=== PATIENT | female | born 1975 | race Caucasian/White ===

== ENCOUNTER 2017-01-14 09:22 | Inpatient (IN) | payer OTHER ==
[2017-01-14] MEDS ORDERED: NS 1000 ML 1,000 ML IV ONE ×5 (10:40→23:31)
[2017-01-14 10:50] VITALS: BMI 24.1
[2017-01-14] MEDS ORDERED: NS 1000 ML 1,000 ML IV SCH (11:00)
[2017-01-14] MEDS ORDERED: PHARMACY CONSULT - DOSE _____ XX SCH (11:00)
[2017-01-14] MEDS ORDERED: CALCITRIOL PO SCH (11:45)
[2017-01-14] MEDS ORDERED: LEXAPRO ONE (12:06)
[2017-01-14] MEDS: LEXAPRO PO SCH (12:08)
[2017-01-14 12:20] LABS: ALBUMIN 1.3 g/dL (3.4-5.0); CALCIUM 7.3 mg/dL (8.5-10.1); CARBON DIOXIDE 21.2 mmol/L (21-32); COR CA(FOR HYPOALB) 9.5 mg/dL (8.5-10.1); CREATININE 11.53 mg/dL (0.55-1.02)
[2017-01-14 12:27] LABS: BASOPHILS # (AUTO) 0.1 X10^3/uL (0.0-0.1); BASOPHILS % (AUTO) 0.4 % (0.2-1.0); HEMATOCRIT 33.8 % (36.0-47.0); HEMOGLOBIN 10.7 g/dL (12.0-16.0); LYMPHOCYTES # (AUTO) 0.2 X10^3/uL (1.3-2.9); LYMPHOCYTES % (AUTO) 0.7 % (21.0-51.0); MEAN CORPUSCULAR HEMOGLOBIN 29.4 pg (27.0-34.0); MEAN CORPUSCULAR HGB CONC 31.5 g/dL (33.0-35.0); MEAN CORPUSCULAR VOLUME 93.2 fL (80.0-100.0); MONOCYTES # (AUTO) 0.3 x10^3/uL (0.3-0.8); MONOCYTES % (AUTO) 1.1 % (0.0-13.0); NEUTROPHILS # (AUTO) 27.3 x10^3/uL (2.2-4.8); NEUTROPHILS % (AUTO) 97.8 % (42.0-75.0); PLATELET COUNT 96 X10^3/uL (150.0-450.0); RED BLOOD COUNT 3.63 X10^6/uL (3.5-5.4); RED CELL DISTRIBUTION WIDTH 14.9 % (11.6-16.5)
[2017-01-14 12:35] LABS: BAND NEUTROPHILS % 15 % (0-10); PLATELET MORPHOLOGY COMMENT NORMAL (NORMAL); WHITE BLOOD COUNT 27.9 X10^3/uL (3.6-10.0)
[2017-01-14] MEDS ORDERED: ROCALTROL PO SCH (13:00)
[2017-01-14] MEDS: ZOSYN VIAL 2.25 GM 2.25 GM in NS 100 ML IV + SPIKE MINIBAG* 100 ML IV SCH ×2 (14:09→15:28)
[2017-01-14] MEDS: TACROLIMUS 1.5 MG PO SCH ×3 (14:09→23:10)
[2017-01-14] MEDS: SEVELAMER CARBONATE PO SCH ×4 (14:10→21:07)
[2017-01-14] MEDS: PANCRELIPASE PO SCH ×2 (16:54→20:04)
[2017-01-14] MEDS ORDERED: NS 1000 ML 1,000 ML ONE (19:46)
[2017-01-14] MEDS ORDERED: NS 1000 ML 500 ML IV ONE ×2 (19:49→21:03)
[2017-01-14] MEDS: FLONASE NASAL SPRAY ENOSTRIL SCH ×2 (19:58→21:16)
[2017-01-14] MEDS: DESYREL PO SCH (20:00)
[2017-01-14] MEDS: NexIUM PO SCH (20:00)
[2017-01-14] MEDS: MYCOPHENOLATE MOFETIL PO SCH (20:03)
[2017-01-14] MEDS: SNACK - Diabetic Appropriate PO SCH (20:24)
[2017-01-14] MEDS ORDERED: TRAZODONE HCL PO SCH (21:00)
[2017-01-14] MEDS: LANTUS SC SCH (21:12)
[2017-01-15] MEDS: NS 1000 ML 1,000 ML IV SCH ×6 (00:43→21:38)
[2017-01-15] MEDS ORDERED: NS 1000 ML 1,000 ML IV ONE (00:50)
[2017-01-15 06:37] LABS: BASOPHILS # (AUTO) 0.1 X10^3/uL (0.0-0.1); BASOPHILS % (AUTO) 0.3 % (0.2-1.0); EOSINOPHILS % (AUTO) 0.2 % (0.9-2.9); HEMATOCRIT 27.2 % (36.0-47.0); HEMOGLOBIN 8.7 g/dL (12.0-16.0); LYMPHOCYTES # (AUTO) 0.6 X10^3/uL (1.3-2.9); LYMPHOCYTES % (AUTO) 2.3 % (21.0-51.0); MEAN CORPUSCULAR HGB CONC 31.9 g/dL (33.0-35.0); MEAN CORPUSCULAR VOLUME 94.2 fL (80.0-100.0); MEAN PLATELET VOLUME 10.1 fL (7.4-11.0); MONOCYTES # (AUTO) 1.1 x10^3/uL (0.3-0.8); MONOCYTES % (AUTO) 4.3 % (0.0-13.0); NEUTROPHILS # (AUTO) 23.2 x10^3/uL (2.2-4.8); NEUTROPHILS % (AUTO) 92.9 % (42.0-75.0); PLATELET COUNT 82 X10^3/uL (150.0-450.0); RED BLOOD COUNT 2.88 X10^6/uL (3.5-5.4); RED CELL DISTRIBUTION WIDTH 15.4 % (11.6-16.5)
[2017-01-15 06:44] LABS: ALANINE AMINOTRANSFERASE 16 Units/L (12-78); ALKALINE PHOSPHATASE 337 Units/L (46-116); ASPARTATE AMINO TRANSFERASE 12 Units/L (15-37); BLOOD UREA NITROGEN 45 mg/dL (7-18); CALCIUM 6.9 mg/dL (8.5-10.1); CARBON DIOXIDE 16.4 mmol/L (21-32); CHLORIDE 108 mmol/L (98-107); COR CA(FOR HYPOALB) 9.3 mg/dL (8.5-10.1); GLUCOSE 105 mg/dL (65-99); SODIUM 138 mmol/L (136-145); TOTAL PROTEIN 4.5 g/dL (6.4-8.2); eGFR BLACK RACES 6 (>60); eGFR NON BLACK RACES 5 (>60)
--- NOTE | 2017-01-15 06:57 | RAD ---
HISTORY: Fever Study: Chest two views Comparison: August 12, 2016 Findings: The heart is enlarged. No congestive heart failure is noted. Interstitial lung changes are present b ilaterally. Pleural-parenchymal scarring is present in the right lung base and along the right later al chest wall. There does appear to be some superimposed acute right lower lobe infiltrate present. A right pleural effusion is likely present. The remainder of the lung treviño are free of acute alveo lar infiltrates. There is some peribronchial thickening consistent with bronchitis. IMPRESSION: Cardiomegaly without congestive heart failure Right lower lobe lung infiltrate suggestive of pneumonia. Peribronchial thickening suggestive of bronchitis Pleural-parenchymal scarring right lung base Right pleural effusion Reported By:
[2017-01-15 07:01] LABS: BAND NEUTROPHILS % 7 % (0-10); PLATELET MORPHOLOGY COMMENT NORMAL (NORMAL)
[2017-01-15] MEDS ORDERED: LEXAPRO ONE (07:44)
[2017-01-15] MEDS: PREDNISONE TAB 5 MG PO SCH ×2 (07:53→08:07)
[2017-01-15] MEDS: LEXAPRO PO SCH ×2 (07:54→08:08)
[2017-01-15] MEDS: NexIUM PO SCH ×3 (07:54→20:27)
[2017-01-15] MEDS: SEVELAMER CARBONATE PO SCH ×3 (07:55→21:38)
[2017-01-15] MEDS: MYCOPHENOLATE MOFETIL PO SCH ×3 (07:56→20:27)
[2017-01-15] MEDS: PANCRELIPASE PO SCH ×3 (07:56→20:27)
[2017-01-15] MEDS: ZOSYN VIAL 2.25 GM 2.25 GM in NS 100 ML IV + SPIKE MINIBAG* 100 ML IV SCH ×3 (07:57→20:36)
[2017-01-15] MEDS: FLONASE NASAL SPRAY ENOSTRIL SCH ×3 (07:58→20:36)
[2017-01-15] MEDS: TACROLIMUS 1.5 MG PO SCH ×3 (07:58→23:45)
[2017-01-15] MEDS ORDERED: SOLU-Cortef INJ IVP ONE (08:39)
[2017-01-15] MEDS ORDERED: PREDNISONE TAB 5 MG PO SCH ×2 (09:00)
--- NOTE | 2017-01-15 09:12 | CT ---
STUDY: CT PARANASAL SINUSES WITHOUT CONTRAST HISTORY: Fever. Comparison: None. Technique: Multiple axial images of the paranasal sinuses were obtained without the administration o f IV contrast. Coronal and sagittal reformats were performed and reviewed. Automated exposure contr ol (AEC) was utilized to adjust the MA and/or kV. Findings: Axial images: There is complete opacification of the right maxillary sinus. There is complete opacif ication of an atelectatic left maxillary sinus. There is opacification of atelectatic sphenoid chamb ers bilaterally, and extensive opacification of multiple ethmoid air cells , with associated small f luid levels. The frontal recesses are opacified. There is under pneumatization of the frontal sinuse s. There is extensive osteoneogenesis around the paranasal sinuses. The retro antral fat is clear. T he nasal cavity is within normal limits. There is no significant nasal septal deviation. The nasal b one is intact. Reformatted images: The ethmoid roofs are symmetric. There is several possible defects in the lamina papyracea bilaterally. There are postsurgical changes in the maxillary antra. There is no evidence of orbital blowout. The ostiomeatal units are predominantly clear. No signficant odontogenic abnorma lity is identified. Mastoid air cells and middle ear cavities are predominately clear. IMPRESSION: 1. Complete and partial opacification of the paranasal sinuses as described, with associated osteon eogenesis. Imaging characteristics are most concerning for acute on chronic sinusitis. Clinical leti elation is recommended. 2. Normal appearing mastoid air cells and middle ear cavities bilaterally. Reported By:
[2017-01-15] MEDS ORDERED: PROCRIT or EPOGEN SC ONE (09:34)
[2017-01-15] MEDS ORDERED: NS 1000 ML 1,000 ML IV SCH (12:00)
[2017-01-15] MEDS ORDERED: PROCRIT or EPOGEN ONE (12:09)
[2017-01-15] MEDS: SOLU-Cortef INJ IVP SCH ×2 (13:42→21:37)
[2017-01-15] MEDS: DESYREL PO SCH (20:27)
[2017-01-15] MEDS: HumuLIN R SUBCUT PRN (20:34)
[2017-01-15] MEDS: LANTUS SC SCH (20:34)
[2017-01-15] MEDS: SNACK - Diabetic Appropriate PO SCH (20:36)
[2017-01-16] MEDS: HumuLIN R SUBCUT PRN ×3 (05:34→21:35)
[2017-01-16] MEDS: SOLU-Cortef INJ IVP SCH (05:34)
[2017-01-16] MEDS: SEVELAMER CARBONATE PO SCH ×4 (05:36→21:32)
[2017-01-16] MEDS: NS 1000 ML 1,000 ML IV SCH (05:42)
[2017-01-16 06:15] LABS: BASOPHILS % (AUTO) 0.1 % (0.2-1.0); EOSINOPHILS % (AUTO) 0.1 % (0.9-2.9); HEMATOCRIT 30.4 % (36.0-47.0); HEMOGLOBIN 9.9 g/dL (12.0-16.0); LYMPHOCYTES # (AUTO) 0.4 X10^3/uL (1.3-2.9); LYMPHOCYTES % (AUTO) 2.3 % (21.0-51.0); MEAN CORPUSCULAR HEMOGLOBIN 30.4 pg (27.0-34.0); MEAN CORPUSCULAR HGB CONC 32.5 g/dL (33.0-35.0); MEAN CORPUSCULAR VOLUME 93.4 fL (80.0-100.0); MEAN PLATELET VOLUME 9.6 fL (7.4-11.0); MONOCYTES # (AUTO) 0.3 x10^3/uL (0.3-0.8); MONOCYTES % (AUTO) 1.7 % (0.0-13.0); NEUTROPHILS # (AUTO) 18.1 x10^3/uL (2.2-4.8); NEUTROPHILS % (AUTO) 95.8 % (42.0-75.0); PLATELET COUNT 90 X10^3/uL (150.0-450.0); RED BLOOD COUNT 3.25 X10^6/uL (3.5-5.4); RED CELL DISTRIBUTION WIDTH 15.5 % (11.6-16.5); WHITE BLOOD COUNT 18.9 X10^3/uL (3.6-10.0)
[2017-01-16 06:31] LABS: ALBUMIN 1.1 g/dL (3.4-5.0); CALCIUM 7.1 mg/dL (8.5-10.1); CARBON DIOXIDE 16.4 mmol/L (21-32); COR CA(FOR HYPOALB) 9.4 mg/dL (8.5-10.1); CREATININE 9.41 mg/dL (0.55-1.02); TOTAL PROTEIN 4.9 g/dL (6.4-8.2)
[2017-01-16 06:45] LABS: BAND NEUTROPHILS % 3 % (0-10)
[2017-01-16 06:46] LABS: PLATELET MORPHOLOGY COMMENT NORMAL (NORMAL)
[2017-01-16] MEDS ORDERED: LEXAPRO ONE (07:31)
[2017-01-16] MEDS ORDERED: MAGNESIUM SULFATE 1 GM/100 mL PREMIX 1 GM/100 ML BAG IV ONE (07:46)
[2017-01-16] MEDS: FLONASE NASAL SPRAY ENOSTRIL SCH ×2 (08:06→21:36)
[2017-01-16] MEDS ORDERED: LANTUS SC SCH (08:06)
[2017-01-16] MEDS: LEXAPRO PO SCH (08:06)
[2017-01-16] MEDS: MYCOPHENOLATE MOFETIL PO SCH ×2 (08:06→21:30)
[2017-01-16] MEDS: NexIUM PO SCH ×2 (08:07→21:28)
[2017-01-16] MEDS: ZOSYN VIAL 2.25 GM 2.25 GM in NS 100 ML IV + SPIKE MINIBAG* 100 ML IV SCH ×2 (08:08→21:32)
[2017-01-16] MEDS: PANCRELIPASE PO SCH ×2 (08:08→21:31)
[2017-01-16] MEDS: TACROLIMUS 1.5 MG PO SCH ×3 (08:08→23:53)
[2017-01-16] MEDS: PREDNISONE TAB 10 MG PO SCH (08:12)
[2017-01-16] MEDS: DESYREL PO SCH (21:28)
[2017-01-16] MEDS: SNACK - Diabetic Appropriate PO SCH (21:33)
[2017-01-17] MEDS: NS 1000 ML 1,000 ML IV SCH ×2 (01:51→09:20)
[2017-01-17 05:38] LABS: ALBUMIN 1.3 g/dL (3.4-5.0); BASOPHILS # (AUTO) 0.1 X10^3/uL (0.0-0.1); BASOPHILS % (AUTO) 0.4 % (0.2-1.0); CALCIUM 7.4 mg/dL (8.5-10.1); CARBON DIOXIDE 18.5 mmol/L (21-32); COR CA(FOR HYPOALB) 9.6 mg/dL (8.5-10.1); CREATININE 9.22 mg/dL (0.55-1.02); EOSINOPHILS # (AUTO) 0.1 x10^3/uL (0.0-0.2); EOSINOPHILS % (AUTO) 0.4 % (0.9-2.9); HEMATOCRIT 33.7 % (36.0-47.0); HEMOGLOBIN 10.5 g/dL (12.0-16.0); LYMPHOCYTES # (AUTO) 0.9 X10^3/uL (1.3-2.9); LYMPHOCYTES % (AUTO) 4.8 % (21.0-51.0); MAGNESIUM 1.8 mg/dL (1.7-2.9); MEAN CORPUSCULAR HEMOGLOBIN 29.5 pg (27.0-34.0); MEAN CORPUSCULAR HGB CONC 31.3 g/dL (33.0-35.0); MEAN CORPUSCULAR VOLUME 94.3 fL (80.0-100.0); MEAN PLATELET VOLUME 8.9 fL (7.4-11.0); MONOCYTES # (AUTO) 0.4 x10^3/uL (0.3-0.8); NEUTROPHILS % (AUTO) 92.4 % (42.0-75.0); PLATELET COUNT 103 X10^3/uL (150.0-450.0); RED BLOOD COUNT 3.57 X10^6/uL (3.5-5.4); RED CELL DISTRIBUTION WIDTH 15.3 % (11.6-16.5); TOTAL PROTEIN 5.1 g/dL (6.4-8.2); WHITE BLOOD COUNT 18.4 X10^3/uL (3.6-10.0)
[2017-01-17] MEDS: HumuLIN R SUBCUT PRN (05:49)
--- NOTE | 2017-01-17 06:54 | RAD ---
HISTORY: Follow up lung infiltrate Study: chest two-view Comparison: January 15, 2017 Findings: The heart is enlarged. No congestive heart failure is noted. There has been improvement in the right lower lobe infiltrate being followed. Pleural-parenchymal scarring is present also in the right krysta g base, stable. The remainder of the lung treviño are free of acute alveolar infiltrates. There are s ome interstitial lung changes bilaterally. Bilateral small pleural effusions are present. IMPRESSION: Improving right basilar lung infiltrate Bilateral small effusions Cardiomegaly without congestive heart failure Interstitial lung changes Reported By:
[2017-01-17 07:21] LABS: PLATELET MORPHOLOGY COMMENT NORMAL (NORMAL)
[2017-01-17] MEDS ORDERED: LEXAPRO ONE (08:55)
[2017-01-17] MEDS: FLONASE NASAL SPRAY ENOSTRIL SCH (09:00)
[2017-01-17] MEDS: SEVELAMER CARBONATE PO SCH (09:00)
[2017-01-17] MEDS: PREDNISONE TAB 10 MG PO SCH (09:15)
[2017-01-17] MEDS: LEXAPRO PO SCH (09:15)
[2017-01-17] MEDS: ZOSYN VIAL 2.25 GM 2.25 GM in NS 100 ML IV + SPIKE MINIBAG* 100 ML IV SCH (09:16)
[2017-01-17] MEDS: NexIUM PO SCH (09:16)
[2017-01-17] MEDS: MYCOPHENOLATE MOFETIL PO SCH (09:18)
[2017-01-17] MEDS: PANCRELIPASE PO SCH (09:19)
[2017-01-17 16:30] VITALS: BP 104/65
== END 2017-01-17 13:50 | disposition home or self-care (01) | DRG 312 ==
LOC: OBSVTOIN 09:22 → MED/SURG 09:22 → ICU 10:10
PROVIDERS: ADMIT Obstetrics & Gynecology Obstetrics; ATTEND Obstetrics & Gynecology Obstetrics
DX: I95.1 Orthostatic hypotension (principal); R50.9 Fever, unspecified; R11.2 Nausea with vomiting, unspecified; R30.0 Dysuria; J16.8 Pneumonia due to other specified infectious organisms; E27.49 Other adrenocortical insufficiency; E84.9 Cystic fibrosis, unspecified; E86.0 Dehydration; E11.65 Type 2 diabetes mellitus with hyperglycemia; E83.42 Hypomagnesemia; N18.9 Chronic kidney disease, unspecified
CPT/HCPCS: 36415; 70486; 71020; 80053; 83735; 84100; 84630; 85025; 87040; A4222; J0885; J1720; J1815; J2543; J7506

== ENCOUNTER 2017-01-18 12:20 | Emergency (ER) | payer OTHER ==
[2017-01-18] MEDS ORDERED: SOLU-Medrol 125 MG VIAL ONE (12:22)
[2017-01-18] MEDS ORDERED: SOLU-Medrol 125 MG VIAL IVP ONE ×2 (12:23→12:27)
[2017-01-18] MEDS ORDERED: DOPAMINE IV PREMIX 400 MG 400 MG/250 ML BAG IV ONE ×2 (12:26→12:27)
[2017-01-18] MEDS ORDERED: NS 500 ML IV 500 ML IV ONE (12:26)
[2017-01-18] MEDS ORDERED: ZOFRAN INJ 4 MG VIAL IVP ONE (12:33)
[2017-01-18] MEDS ORDERED: ZOFRAN INJ 4 MG VIAL ONE (12:33)
--- NOTE | 2017-01-18 12:54 | DR.GENAD ---
HPI - Complaint/Symptoms Chief Complaint Doctors Comments: Patient with low blood pressure today. Spouse state patient dismissed from the hospital yesterday and did good at home but her weight was 152 and her dry weight is 136 so she did her dialysis and the pulled off 2600cc and her blood pressure has been low since. states she was in the hospital and they gave her a lot of fluid and states she is fluid overloaded and she is a double lung transplant with home peritoneal dialysis. Patient complains of hurting all over with episode SOB and wheezing. Patient also complains of being nauseated. Dr. Mckeon called and states her blood pressure usually runs low around 70/40 to 90/40. Patient with blood pressure 66 /33. - Nurses notes reviewed Nurses Notes Review: Yes - Source History Provided: Patient, Family Member - Mode of Arrival Mode of Arrival: EMS - Timing Came on: Gradually - Duration Duration: Constant How lon Duration: Hours - Location Location: hurting all over - Severity Severity: Moderate - Modifying Factors Worsens:: nothing Improves:: nothing PMH - PMH Past Medical History: Diabetes, Dialysis, Renal Disease Past Surgical History: Yes Surgical History: Cholecystectomy, Tonsillectomy - Family History Family Medical History: Diabetes Mellitus, Cancer, [place], Hypertension - Social History Do you use any recreational Drugs:: No ROS - Review of Systems Constitutional: No Symptoms Reported, Weakness Eyes: No Symptoms Reported ENTM: No Symptoms Reported Respiratoy: No Symptoms Reported, Short of Breath, Wheezing Cardiovascular: Edema. negative: No Symptoms Reported, See HPI, Chest Pain, Palpitations, Syncope, Cyanosis, Skin Mottling, Other Gastrointestinal/Abdominal: No Symptoms Reported, Nausea, Vomiting. negative: See HPI, Abdominal Pain, Constipation, Diarrhea, Food Intolerance, Other Genitourinary: No Symptoms Reported Neurological: No Symptoms Reported, Weakness, Problems Walking Musculoskeletal: No Symptoms Reported Integumentary: No Symptoms Reported Hematologic/Lymphatic: No Symptoms Reported Endocrine: No Symptoms Reported Psychiatric: No Symptoms Reported PE - Vital Signs Vitals: Temperature 100.3 F Pulse Rate [Right Brachial] 126 Pulse Rate 20 Respiratory Rate 18 Blood Pressure [Right Arm] 123/78 Blood Pressure [Left Arm] 104/65 Blood Pressure 67/33 O2 Sat by Pulse Oximetry 100 - General Limitations: No Limitations General Appearance: Alert, In Distress (moderate to severe) - Head Head Exam: Normal Inspection, Atraumatic, Normocephalic - Eyes Eye exam: Normal Appearance, PERRL, EOMI. negative: Scleral Icterus, Conjunctival Injection, Nystagmus, Miosis, Mydrasis, Periorbital Swelling, Periorbital Tenderness, Other - ENT ENT Exam: Normal Exam, Normal Oropharynx, Normal External Ear Exam, Mucous Membranes Moist, TM's Normal Bilaterally External Ear Exam: Normal External Inspection TM/Canal Exam: Bilateral Normal Nose Exam: Normal Nose Exam Mouth Exam: Normal Inspection Throat Exam: Normal Inspection. negative: Tonsillar Erythema, Tonsillomegaly, Tonsillar Exudate, R Peritonsillar Mass, L Peritonsillar Mass, Muffled Voice, Other - Neck Neck Exam: Normal Inspection, Full ROM, Trachea Midline - Chest Chest Inspection: Normal Inspection, Symmetric Chest Wall Rise - Respiratory Respiratory Exam: Normal Lung Sounds Bilat, Prolonged Expiratory Phase Respiratory Exam: Bilateral Clear to Auscultation - Cardiovascular Cardiovascular Exam: Regular Rate, Normal Rhythm, Normal Heart Sounds. negative : Bradycardia, Tachycardia, Irregular Rhythm, Systolic Murmur, Diastolic Murmur , Rubs, Gallop, Clicks, JVD, +S1, +S2, +S3, +S4, Other - Abdominal Exam Abdominal Exam: Normal Inspection, Normal Bowel Sounds, Soft Abdominal Tenderness: Epigastrium, Mild - Extremities Extremities Exam: Normal Inspection, Full ROM, Normal Capillary Refill. negative: Tenderness - Back Back Exam: Normal Inspection, Full ROM - Neurologic Neurological Exam: Alert, Oriented X3, CN II-XII Intact, Reflexes Normal. negative: Normal Gait (gait not tested) - Psychiatric Psychiatric Exam: Normal Affect, Normal Mood, Depressed - Skin Skin Exam: Warm, Dry, Intact, Normal Color ROR - Labs Reviewed Result Diagrams: 01/18/17 12:40 01/18/17 12:40 Laboratory: WBC 20.9 X10^3/uL (3.6-10.0) H* 01/18/17 12:40 RBC 3.85 X10^6/uL (3.5-5.4) 01/18/17 12:40 Hgb 11.3 g/dL (12.0-16.0) L 01/18/17 12:40 Hct 35.5 % (36.0-47.0) L 01/18/17 12:40 MCV 92.2 fL (80.0-100.0) 01/18/17 12:40 MCH 29.4 pg (27.0-34.0) 01/18/17 12:40 MCHC 31.9 g/dL (33.0-35.0) L 01/18/17 12:40 RDW 14.9 % (11.6-16.5) 01/18/17 12:40 Plt Count 103 X10^3/uL (150.0-450.0) L 01/18/17 12:40 Plt Count Comment Decreased (ADEQUATE) A 01/18/17 12:40 MPV 8.5 fL (7.4-11.0) 01/18/17 12:40 Neut % 98.1 % (42.0-75.0) H 01/18/17 12:40 Lymph % 0.9 % (21.0-51.0) L 01/18/17 12:40 [place] % 0.1 % (0.0-13.0) 01/18/17 12:40 Eos % 0.6 % (0.9-2.9) L 01/18/17 12:40 Baso % 0.3 % (0.2-1.0) 01/18/17 12:40 Neut # 20.5 x10^3/uL (2.2-4.8) H 01/18/17 12:40 Lymph # 0.2 X10^3/uL (1.3-2.9) L 01/18/17 12:40 [place] # 0 x10^3/uL (0.3-0.8) L 01/18/17 12:40 Eos # 0.1 x10^3/uL (0.0-0.2) 01/18/17 12:40 Baso # 0.1 X10^3/uL (0.0-0.1) 01/18/17 12:40 Absolute Nucleated RBC 0.5 /100WBC 01/18/17 12:40 Total Counted 100 01/18/17 12:40 Neutrophils % (Manual) 97 % (39-76) H 01/18/17 12:40 Lymphocytes % (Manual) 2 % (13-43) L 01/18/17 12:40 Monocytes % (Manual) 1 % (4-9) L 01/18/17 12:40 Plt Morphology Comment Normal (NORMAL) 01/18/17 12:40 RBC Morphology Normal (NORMAL) 01/18/17 12:40 INR Target Range - 01/18/17 12:40 INR 1.16 (0.8-1.3) 01/18/17 12:40 PTT 24.8 SECONDS (22.9-36.5) 01/18/17 12:40 PTT Comment - 01/18/17 12:40 Sodium 138 mmol/L (136-145) 01/18/17 12:40 Corrected Sodium 139 mmol/L (136-145) 01/18/17 12:40 Potassium 3.0 mmol/L (3.5-5.1) L* 01/18/17 12:40 Chloride 103 mmol/L (98-107) 01/18/17 12:40 Carbon Dioxide 19.4 mmol/L (21-32) L 01/18/17 12:40 BUN 41 mg/dL (7-18) H 01/18/17 12:40 Creatinine 8.95 mg/dL (0.55-1.02) H 01/18/17 12:40 Est GFR (MDRD) Af Amer 6 (>60) L 01/18/17 12:40 Est GFR (MDRD) Non-Af 5 (>60) L 01/18/17 12:40 Glucose 122 mg/dL (65-99) H 01/18/17 12:40 Lactic Acid 4.3 mmol/L (0.4-2.0) H 01/18/17 13:10 Calcium 7.3 mg/dL (8.5-10.1) L 01/18/17 12:40 Corrected Calcium 9.4 mg/dL (8.5-10.1) 01/18/17 12:40 Magnesium 1.3 mg/dL (1.7-2.9) L 01/18/17 12:40 Total Bilirubin 0.70 mg/dL (0.2-1.0) 01/18/17 12:40 AST 105 Units/L (15-37) H 01/18/17 12:40 ALT 60 Units/L (12-78) 01/18/17 12:40 Alkaline Phosphatase 630 Units/L (46-116) H 01/18/17 12:40 Creatine Kinase 12 Units/L (26-192) L 01/18/17 12:40 CK-MB (CK-2) < 1.0 ng/mL (0-4.0) 01/18/17 12:40 CK/CKMB % Calc 8.3 % (<4) 01/18/17 12:40 Troponin I < 0.02 ng/mL (0-1.5) 01/18/17 12:40 Total Protein 4.9 g/dL (6.4-8.2) L 01/18/17 12:40 Albumin 1.4 g/dL (3.4-5.0) L 01/18/17 12:40 Globulin 3.5 g/dL (2.5-4.5) 01/18/17 12:40 Albumin/Globulin Ratio 0.4 Ratio (1.1-2.1) L 01/18/17 12:40 - EKG Rate: 130 [place]: Normal Rhythm: ST ST: Ant, Nonsp - Diagnosis Discharge Problem: Symptomatic hypotension, Renal failure, Lung transplant status, bilateral, Hypokalemia, bilateral pulmonary basilar lesions, History of peritoneal dialysis - [facility] Condition: Stable - Follow ups/Referrals Follow ups/Referrals: PALOMA MCKEON [Primary Care Provider] - 3 days - Instructions
[2017-01-18 12:57] LABS: EOSINOPHILS # (AUTO) 0.1 x10^3/uL (0.0-0.2); HEMATOCRIT 35.5 % (36.0-47.0); HEMOGLOBIN 11.3 g/dL (12.0-16.0); LYMPHOCYTES # (AUTO) 0.2 X10^3/uL (1.3-2.9); MONOCYTES # (AUTO) 0 x10^3/uL (0.3-0.8)
[2017-01-18 13:06] LABS: BASOPHILS # (AUTO) 0.1 X10^3/uL (0.0-0.1); BASOPHILS % (AUTO) 0.3 % (0.2-1.0); EOSINOPHILS % (AUTO) 0.6 % (0.9-2.9); LYMPHOCYTES % (AUTO) 0.9 % (21.0-51.0); MEAN CORPUSCULAR HEMOGLOBIN 29.4 pg (27.0-34.0); MEAN CORPUSCULAR HGB CONC 31.9 g/dL (33.0-35.0); MEAN CORPUSCULAR VOLUME 92.2 fL (80.0-100.0); MEAN PLATELET VOLUME 8.5 fL (7.4-11.0); MONOCYTES % (AUTO) 0.1 % (0.0-13.0); NEUTROPHILS # (AUTO) 20.5 x10^3/uL (2.2-4.8); NEUTROPHILS % (AUTO) 98.1 % (42.0-75.0); PLATELET COUNT 103 X10^3/uL (150.0-450.0); RED BLOOD COUNT 3.85 X10^6/uL (3.5-5.4); RED CELL DISTRIBUTION WIDTH 14.9 % (11.6-16.5)
[2017-01-18 13:14] LABS: ALANINE AMINOTRANSFERASE 60 Units/L (12-78); ALBUMIN 1.4 g/dL (3.4-5.0); ALKALINE PHOSPHATASE 630 Units/L (46-116); ASPARTATE AMINO TRANSFERASE 105 Units/L (15-37); BLOOD UREA NITROGEN 41 mg/dL (7-18); CALCIUM 7.3 mg/dL (8.5-10.1); CARBON DIOXIDE 19.4 mmol/L (21-32); CHLORIDE 103 mmol/L (98-107); COR CA(FOR HYPOALB) 9.4 mg/dL (8.5-10.1); COR NA(FOR HYPERGLY) 139 mmol/L (136-145); CREATINE KINASE 12 Units/L (26-192); CREATINE KINASE MB < 1.0 ng/mL (0-4.0); CREATININE 8.95 mg/dL (0.55-1.02); GLUCOSE 122 mg/dL (65-99); MAGNESIUM 1.3 mg/dL (1.7-2.9); SODIUM 138 mmol/L (136-145); TOTAL PROTEIN 4.9 g/dL (6.4-8.2); TROPONIN I < 0.02 ng/mL (0-1.5); eGFR BLACK RACES 6 (>60); eGFR NON BLACK RACES 5 (>60)
[2017-01-18 13:16] LABS: WHITE BLOOD COUNT 20.9 X10^3/uL (3.6-10.0)
[2017-01-18 13:17] LABS: PLATELET MORPHOLOGY COMMENT NORMAL (NORMAL)
[2017-01-18 13:21] VITALS: BMI 24.3
[2017-01-18 13:21] LABS: CKMB % 8.3 % (<4)
[2017-01-18] MEDS ORDERED: REGLAN INJ 10 MG VIAL ONE (13:51)
--- NOTE | 2017-01-18 13:57 | RAD ---
HISTORY: Chest pain, bilateral lung transplant Study: Single-view chest Comparison: January 17, 2017 Findings: The trachea is midline. The heart size is normal. Surgical changes are present from lung transplanta tion. Improving aeration is seen involving the lung bases. A small pleural effusion is present on th e left. The right-sided pleural effusion may have resolved. A few small foci of atelectasis or infil trate are still present in the lung bases bilaterally. Osseous structures are intact. IMPRESSION: Interval improvement as described above. Reported By:
[2017-01-18] MEDS ORDERED: K-RIDER 10 MEQ/NS 100 ML 10 MEQ/100 ML BAG IV ONE (14:03)
[2017-01-18] MEDS ORDERED: REGLAN INJ 10 MG VIAL IVP STA (14:03)
[2017-01-18] MEDS ORDERED: VANCOMYCIN HCL 1 GM VIAL IV STA (14:21)
[2017-01-18] MEDS ORDERED: TYLENOL 500 MG TAB EXTRA STRENGTH PO ONE ×2 (14:51→21:34)
[2017-01-18] MEDS ORDERED: TYLENOL 500 MG TAB EXTRA STRENGTH ONE ×2 (14:52→21:32)
[2017-01-18] MEDS ORDERED: MERREM VIAL 500 MG in NS 100 ML IV + SPIKE MINIBAG* 100 ML IV SCH (15:00)
[2017-01-18] MEDS ORDERED: VANCOMYCIN HCL 1 GM VIAL ONE (15:03)
[2017-01-18] MEDS ORDERED: NS 250 ML IV 250 ML IV ONE (15:03)
[2017-01-18] MEDS ORDERED: NS 100 ML IV 100 ML IV ONE (21:19)
[2017-01-18] MEDS ORDERED: MERREM VIAL ONE (21:19)
[2017-01-18 22:16] VITALS: BP 98/65
== END 2017-01-18 23:18 ==
LOC: ER 12:20
DX: I95.89 Other hypotension (principal); N19 Unspecified kidney failure; Z94.2 Lung transplant status; E87.6 Hypokalemia; J98.4 Other disorders of lung; Z99.2 Dependence on renal dialysis
CPT/HCPCS: 36415; 71010; 80053; 82550; 82553; 83605; 83735; 84484; 85025; 85610; 85730; 93005; 93010; 96365; 96367; 96374; 96375; 99283; 99285; A4222; J1265; J2185; J2405; J2765; J2930; J3370

== ENCOUNTER 2017-07-02 09:42 | Inpatient (IN) | payer OTHER ==
[2017-07-02] MEDS: NS 1000 ML 1,000 ML IV SCH (10:00)
[2017-07-02 10:13] VITALS: BMI 25.6
[2017-07-02] MEDS ORDERED: NS 1000 ML 300 ML IV ONE (10:16)
[2017-07-02] MEDS ORDERED: ZOFRAN INJ 4 MG VIAL IVP PRN (10:20)
[2017-07-02 10:27] LABS: BASOPHILS % (AUTO) 0.2 % (0.2-1.0); EOSINOPHILS # (AUTO) 0.1 x10^3/uL (0.0-0.2); EOSINOPHILS % (AUTO) 0.8 % (0.9-2.9); HEMATOCRIT 30.1 % (36.0-47.0); HEMOGLOBIN 9.9 g/dL (12.0-16.0); LYMPHOCYTES # (AUTO) 0.6 X10^3/uL (1.3-2.9); LYMPHOCYTES % (AUTO) 3.9 % (21.0-51.0); MEAN CORPUSCULAR HEMOGLOBIN 29.6 pg (27.0-34.0); MEAN CORPUSCULAR VOLUME 89.6 fL (80.0-100.0); MEAN PLATELET VOLUME 8.9 fL (7.4-11.0); MONOCYTES # (AUTO) 1.6 x10^3/uL (0.3-0.8); MONOCYTES % (AUTO) 9.6 % (0.0-13.0); NEUTROPHILS # (AUTO) 13.9 x10^3/uL (2.2-4.8); NEUTROPHILS % (AUTO) 85.5 % (42.0-75.0); PLATELET COUNT 103 X10^3/uL (150.0-450.0); RED BLOOD COUNT 3.36 X10^6/uL (3.5-5.4); RED CELL DISTRIBUTION WIDTH 17.2 % (11.6-16.5); WHITE BLOOD COUNT 16.2 X10^3/uL (3.6-10.0)
[2017-07-02] MEDS: DILAUDID INJ IVP PRN ×2 (10:27→13:09)
--- NOTE | 2017-07-02 10:29 | RAD ---
Examination: Portable AP chest History: SOB, lung transplant, dialysis Comparison reference: 01/18/2017 Findings: There is mild cardiomegaly. The central pulmonary vessels are congested. There is abnormal density behind the heart which may reflect airspace disease in the lower lung. The upper lobes are re latively clear. There is a right IJ catheter, possibly for dialysis purposes, extending to the right atrium. There is no evidence for pneumothorax. Impression: Cardiomegaly and pulmonary vascular congestion. Suspect infiltrate/atelectasis left lower lobe. Right IJ dialysis catheter position as described. Reported By:
[2017-07-02 10:35] LABS: B-TYPE NATRIURETIC PEPTIDE 124 pg/mL (0-79)
[2017-07-02 10:41] LABS: BLOOD UREA NITROGEN 40 mg/dL (7-18); CARBON DIOXIDE 28.5 mmol/L (21-32); CHLORIDE 94 mmol/L (98-107); CREATININE 10.46 mg/dL (0.55-1.02); SODIUM 133 mmol/L (136-145); TROPONIN I < 0.02 ng/mL (0-1.5); eGFR BLACK RACES 5 (>60); eGFR NON BLACK RACES 4 (>60)
[2017-07-02 10:45] LABS: ALANINE AMINOTRANSFERASE 23 Units/L (12-78); ALBUMIN 1.4 g/dL (3.4-5.0); ALKALINE PHOSPHATASE 592 Units/L (46-116); ASPARTATE AMINO TRANSFERASE 21 Units/L (15-37); CKMB % 3.2 % (<4); COR CA(FOR HYPOALB) 9.1 mg/dL (8.5-10.1); CREATINE KINASE 31 Units/L (26-192); CREATINE KINASE MB < 1.0 ng/mL (0-4.0); TOTAL PROTEIN 6.2 g/dL (6.4-8.2)
[2017-07-02] MEDS ORDERED: SODIUM THIOSULFATE IVP SCH (11:30)
[2017-07-02] MEDS ORDERED: SOLU-Medrol 40 MG VIAL IVP ONE (11:34)
[2017-07-02] MEDS ORDERED: SOLU-Medrol 40 MG VIAL ONE (11:41)
--- NOTE | 2017-07-02 12:53 | DR.SOBA ---
HPI - Time Seen Time seen: 10:50 - Primary Care Physician Primary Care Physician: [email or web address] - HPI Comment HPI Comment: PATIENT IS HAVING ABDOMINAL PAIN, FEVER SOB AND DIZZNESS CURRENTLY. NO VOMITING. NO DIARRHEA. ON PERITONEAL DIALYSIS AND HAVE ADRENAL INSUFFICIECY. PATIENT IS ON DAILY PREDNISONE CURRENTLY. PATIENT OF DR. MCKEON. HE IS IN ED EVALUATING PATIENT WELL. HISTORY CYSTIC FIBROSIS, S/P LUNG TRANSPLNT. - Complaints Chief Complaint Doctors Comments: SOB, DIZZINESS AND LOW BLOOD PRESSURE TIMES ONE DAY. Chief Complaint:: FEELING SHORT OF BREATH AND LIGHTHEADED WITH LOW BLOOD PRESSURE AND FEELING FAINT. 99.0 TEMP LAST NIGHT. PT DOES NOT HAVE ANY PAIN TO THE ABD. Self Treatment fo Chief Complaint: PT HAS BEEN TAKING HOME MEDS. - Reviewed Nurses Notes Reviewed: Yes - Source History Provided: Patient - Mode of Arrival Mode of Arrival: Ambulatory - Timing Onset of Chief Complaint: 07/01/17 - Duration Duration: Days - Context Onset:: At Rest PE Risk Factors:: None History of:: None Currently on:: Steroids Prehospital Care:: None - Modifying Factors Worsens:: Exertion Improves:: Nothing - Associated Signs and Symptoms Associated Signs and Symptoms: Fever, Wheeze, Cough, Nasal Congestion, Chest Pain, Leg Swelling, Calf Pain - If Chest Pain Quality: Sharp Location: Right Lower Chest, Left Upper Chest, Substernal - If Cough Cough: Productive, Yellow PMH - PMH Past Medical History: Yes Past Medical History: Anxiety, Diabetes, Dialysis, Renal Disease Past Medical History Comment: CYSTIC FIBROSIS Past Surgical History: Yes Surgical History: Cholecystectomy, Tonsillectomy Past Surgical History Comment: BILATERAL LUNG TRANSPLANT - Family History History of Family Medical Conditions: Yes Family Medical History: Diabetes Mellitus, Cancer, [place], Hypertension - Social History Does any household member use tobacco: No Alcohol Use: None Do you use any recreational Drugs:: No Lives With: Family Lives Where: Home - infectious screening In the last 2 months have you had wt loss of >10#?: NO Have you had fever, night sweats or hemotysis?: No Have you traveled outside the country in the last 6 months?: No Isolation: Standard ROS - Review of Systems Constitutional: Chills, Fever, Weakness, Fatigue Eyes: No Symptoms Reported ENTM: Nose Congestion. negative: Ear Discharge, Throat Pain Respiratoy: Productive Cough, Short of Breath, Wheezing. negative: Hemoptysis Cardiovascular: Chest Pain, Edema Gastrointestinal/Abdominal: Abdominal Pain, Constipation Genitourinary: negative: Hematuria Neurological: Headache, Dizziness Musculoskeletal: Back Pain, Muscle Pain Integumentary: Dryness Hematologic/Lymphatic: No Symptoms Reported, Easy Bleeding, Easy Bruising Endocrine: Flushing, Increased Thirst All Other Systems: Reviewed and Negative PE - Vital Signs Vitals: Temperature 97.8 F Pulse Rate [Left] 109 Pulse Rate 121 Respiratory Rate 22 Blood Pressure [Right Arm] 80/50 Blood Pressure [Left Arm] 104/65 Blood Pressure 77/49 O2 Sat by Pulse Oximetry 98 - General Limitations: No Limitations General Appearance: Alert, Other (ORTHOSTATIC HYPOTENSION ALSO.) - Head Head Exam: Normal Inspection - Eyes Eye exam: Normal Appearance - ENT ENT Exam: Normal External Ear Exam - Neck Neck Exam: Trachea Midline, Tenderness - Chest Chest Inspection: Symmetric Chest Wall Rise - Respiratory Respiratory Exam: Respiratory Distress Respiratory Exam: Bilateral Rhonchi, Lower Rhonchi - Cardiovascular Cardiovascular Exam: Regular Rate, Normal Rhythm, Tachycardia, Systolic Murmur - Abdominal Exam Abdominal Exam: Normal Bowel Sounds, Tenderness Abdominal Tenderness: Diffuse, Moderate - Extremities Extremities Exam: negative: Calf Tenderness - Back Back Exam: Paraspinal Tenderness - Neurologic Neurological Exam: Alert, Oriented X3 - Psychiatric Psychiatric Exam: Normal Affect, Normal Mood - Skin Skin Exam: Dry MDM - Additional Information Obtained Additional Information Obtained From: Family - Differential Diagnosis Differential Diagnosis: Bronchitis, CHF, Mycardial Infarction, Pneumonia, Respiratory Insufficiency Course - Treatment Treatment: SEE ORDERS,. BP RESPONDING TO IV NS. ROCEPHIN IN ED. DR. MCKEON DO NOT WISH TO DO PNEUMONIA PROTOCOL. FINDINGS ON CXR DUE TO SCAR FROM LUNG TRANSPLANT. - Reevaluation 1st: Resolved, Worsened - Consultation Consultation Comments: IN ED AND SAW PT. HE WILL ADMIT PATIENT. - Education/Counseling Education/Counseling: Patient, Family, Education Educated On: Treatment, Diagnosis ROR - Labs Reviewed Laboratory Results Reviewed?: Yes Result Diagrams: 07/02/17 10:05 07/03/17 04:20 Laboratory: WBC 16.2 X10^3/uL (3.6-10.0) H 07/02/17 10:05 RBC 3.36 X10^6/uL (3.5-5.4) L 07/02/17 10:05 Hgb 9.9 g/dL (12.0-16.0) L 07/02/17 10:05 Hct 30.1 % (36.0-47.0) L 07/02/17 10:05 MCV 89.6 fL (80.0-100.0) 07/02/17 10:05 MCH 29.6 pg (27.0-34.0) 07/02/17 10:05 MCHC 33.0 g/dL (33.0-35.0) 07/02/17 10:05 RDW 17.2 % (11.6-16.5) H 07/02/17 10:05 Plt Count 103 X10^3/uL (150.0-450.0) L 07/02/17 10:05 MPV 8.9 fL (7.4-11.0) 07/02/17 10:05 Neut % 85.5 % (42.0-75.0) H 07/02/17 10:05 Lymph % 3.9 % (21.0-51.0) L 07/02/17 10:05 [place] % 9.6 % (0.0-13.0) 07/02/17 10:05 Eos % 0.8 % (0.9-2.9) L 07/02/17 10:05 Baso % 0.2 % (0.2-1.0) 07/02/17 10:05 Neut # 13.9 x10^3/uL (2.2-4.8) H 07/02/17 10:05 Lymph # 0.6 X10^3/uL (1.3-2.9) L 07/02/17 10:05 [place] # 1.6 x10^3/uL (0.3-0.8) H 07/02/17 10:05 Eos # 0.1 x10^3/uL (0.0-0.2) 07/02/17 10:05 Baso # 0.0 X10^3/uL (0.0-0.1) 07/02/17 10:05 Absolute Nucleated RBC 0.0 /100WBC 07/02/17 10:05 Sodium 133 mmol/L (136-145) L 07/02/17 10:05 Corrected Sodium TNP 07/02/17 10:05 Potassium 4.0 mmol/L (3.5-5.1) 07/02/17 10:05 Chloride 94 mmol/L (98-107) L 07/02/17 10:05 Carbon Dioxide 28.5 mmol/L (21-32) 07/02/17 10:05 BUN 40 mg/dL (7-18) H 07/02/17 10:05 Creatinine 10.46 mg/dL (0.55-1.02) H 07/02/17 10:05 Est GFR (MDRD) Af Amer 5 (>60) L 07/02/17 10:05 Est GFR (MDRD) Non-Af 4 (>60) L 07/02/17 10:05 Glucose 68 mg/dL (65-99) 07/02/17 10:05 Calcium 7.0 mg/dL (8.5-10.1) L 07/02/17 10:05 Corrected Calcium 9.1 mg/dL (8.5-10.1) 07/02/17 10:05 Total Bilirubin 0.70 mg/dL (0.2-1.0) 07/02/17 10:05 AST 21 Units/L (15-37) 07/02/17 10:05 ALT 23 Units/L (12-78) 07/02/17 10:05 Alkaline Phosphatase 592 Units/L (46-116) H 07/02/17 10:05 Creatine Kinase 31 Units/L (26-192) 07/02/17 10:05 CK-MB (CK-2) < 1.0 ng/mL (0-4.0) 07/02/17 10:05 CK/CKMB % Calc 3.2 % (<4) 07/02/17 10:05 Troponin I < 0.02 ng/mL (0-1.5) 07/02/17 10:05 B-Natriuretic Peptide 124 pg/mL (0-79) H 07/02/17 10:05 Total Protein 6.2 g/dL (6.4-8.2) L 07/02/17 10:05 Albumin 1.4 g/dL (3.4-5.0) L 07/02/17 10:05 Globulin 4.8 g/dL (2.5-4.5) H 07/02/17 10:05 Albumin/Globulin Ratio 0.3 Ratio (1.1-2.1) L 07/02/17 10:05 - XRAY XRAY Interpreted by: Radiologist XRAY Findings: REPORT DISCUSS WITH PATIENT. - EKG Rhythm: ST (EKG NOTEED.) - Diagnosis Discharge Problem: Pulmonary congestion, Dizziness Hypotension Qualifiers: Hypotension type: orthostatic hypotension Qualified Code(s): I95.1 - Orthostatic hypotension Pneumonia Qualifiers: Pneumonia type: due to unspecified organism Laterality: bilateral Lung location : lower lobe of lung Qualified Code(s): J18.9 - Pneumonia, unspecified organism - Discharge Plan Disposition: 09 ADMITTED INPATIENT Condition: Stable - Follow ups/Referrals - Instructions
[2017-07-02] MEDS ORDERED: PROMETHAZINE HCL 12.5 MG PO PRN (13:09)
[2017-07-02] MEDS ORDERED: CALCITRIOL PO SCH (13:15)
[2017-07-02] MEDS ORDERED: ROCEPHIN VIAL 1 GM 1 GM in NS 50 ML IV + SPIKE MINIBAG* 50 ML IV ONE (13:30)
[2017-07-02] MEDS ORDERED: ROCEPHIN 1 GM IV PREMIX 1 GM/50 ML IV.SOLN. IV ONE (13:34)
[2017-07-02] MEDS ORDERED: PATIENT'S HOME MEDICATION (Sevelamer Carbonate [Renvela Tablet] 800 MG) PO SCH (14:00)
[2017-07-02] MEDS ORDERED: ROCALTROL PO SCH (15:00)
[2017-07-02] MEDS: TACROLIMUS 1.5 MG PO SCH (16:04)
[2017-07-02] MEDS: PHENERGAN TAB 25 MG PO SCH ×2 (16:48→22:15)
[2017-07-02] MEDS: RENAGEL PO SCH (17:15)
[2017-07-02] MEDS: NORCO 10/325 TAB PO PRN (17:16)
[2017-07-02] MEDS ORDERED: XOPENEX 1.25 MG/3 ML NEBULE NEB PRN (17:40)
[2017-07-02] MEDS ORDERED: SNACK - Diabetic Appropriate PO SCH (20:00)
[2017-07-02] MEDS ORDERED: DESYREL PO SCH (21:00)
[2017-07-02] MEDS ORDERED: LANTUS SC SCH (21:00)
[2017-07-02] MEDS ORDERED: TRAZODONE HCL PO SCH (21:00)
[2017-07-02] MEDS: NexIUM PO SCH (22:14)
[2017-07-02] MEDS: LIPASE PO SCH (22:32)
[2017-07-02] MEDS: [UNRECOGNIZED DRUG - OTHER] PO SCH (22:32)
[2017-07-02] MEDS: PROTEASE PO SCH (22:32)
[2017-07-02] MEDS: AMYLASE PO SCH (22:32)
[2017-07-02] MEDS: MYCOPHENOLATE MOFETIL PO SCH (22:32)
[2017-07-02] MEDS: HumuLIN R SUBCUT PRN (22:33)
[2017-07-03] MEDS: TACROLIMUS 1.5 MG PO SCH (01:28)
[2017-07-03 05:26] LABS: BASOPHILS % (AUTO) 0.3 % (0.2-1.0); EOSINOPHILS % (AUTO) 0.1 % (0.9-2.9); HEMATOCRIT 27.2 % (36.0-47.0); LYMPHOCYTES # (AUTO) 0.6 X10^3/uL (1.3-2.9); LYMPHOCYTES % (AUTO) 4.5 % (21.0-51.0); MEAN CORPUSCULAR HGB CONC 33.1 g/dL (33.0-35.0); MEAN CORPUSCULAR VOLUME 90.7 fL (80.0-100.0); MEAN PLATELET VOLUME 8.9 fL (7.4-11.0); MONOCYTES # (AUTO) 0.7 x10^3/uL (0.3-0.8); MONOCYTES % (AUTO) 4.7 % (0.0-13.0); NEUTROPHILS # (AUTO) 13.1 x10^3/uL (2.2-4.8); NEUTROPHILS % (AUTO) 90.4 % (42.0-75.0); PLATELET COUNT 71 X10^3/uL (150.0-450.0); RED CELL DISTRIBUTION WIDTH 16.8 % (11.6-16.5); WHITE BLOOD COUNT 14.5 X10^3/uL (3.6-10.0)
[2017-07-03 05:50] LABS: ALBUMIN 1.1 g/dL (3.4-5.0); CALCIUM 7.1 mg/dL (8.5-10.1); CARBON DIOXIDE 20.5 mmol/L (21-32); COR CA(FOR HYPOALB) 9.4 mg/dL (8.5-10.1); CREATININE 10.25 mg/dL (0.55-1.02); TOTAL PROTEIN 5.5 g/dL (6.4-8.2)
[2017-07-03 06:38] LABS: PLATELET MORPHOLOGY COMMENT NORMAL (NORMAL)
[2017-07-03] MEDS ORDERED: LEXAPRO ONE (07:58)
[2017-07-03] MEDS ORDERED: GENTAMICIN TOPICAL CRM TOP SCH (09:00)
[2017-07-03] MEDS ORDERED: PREDNISONE TAB 10 MG PO SCH (09:00)
[2017-07-03] MEDS ORDERED: LEXAPRO PO SCH (09:00)
[2017-07-03] MEDS ORDERED: FLORINEF PO SCH (09:00)
[2017-07-03] MEDS: NexIUM PO SCH (09:04)
[2017-07-03] MEDS: HumuLIN R SUBCUT PRN ×2 (09:05→12:01)
[2017-07-03] MEDS: RENAGEL PO SCH ×2 (09:05→12:00)
[2017-07-03] MEDS: PHENERGAN TAB 25 MG PO SCH ×2 (09:06→12:21)
[2017-07-03] MEDS: [UNRECOGNIZED DRUG - OTHER] PO SCH (09:07)
[2017-07-03] MEDS: AMYLASE PO SCH (09:07)
[2017-07-03] MEDS: LIPASE PO SCH (09:07)
[2017-07-03] MEDS: PROTEASE PO SCH (09:07)
[2017-07-03] MEDS: MYCOPHENOLATE MOFETIL PO SCH (09:09)
[2017-07-03] MEDS: NS 1000 ML 1,000 ML IV SCH (10:46)
[2017-07-03] MEDS: NORCO 10/325 TAB PO PRN (12:18)
[2017-07-03 14:51] VITALS: BP 88/59
== END 2017-07-03 14:15 | disposition home or self-care (01) | DRG 312 ==
LOC: ER 09:42 → ICU 13:57
PROVIDERS: ADMIT Obstetrics & Gynecology Obstetrics; ATTEND Obstetrics & Gynecology Obstetrics
DX: I95.1 Orthostatic hypotension (principal); E87.1 Hypo-osmolality and hyponatremia; R42 Dizziness and giddiness; R06.03 Acute respiratory distress; R10.84 Generalized abdominal pain; R06.02 Shortness of breath; J18.8 Other pneumonia, unspecified organism; E27.49 Other adrenocortical insufficiency; I77.6 Arteritis, unspecified; B96.5 Pseudomonas (aeruginosa) (mallei) (pseudomallei) as the cause of diseases classified elsewhere; B96.1 Klebsiella pneumoniae [K. pneumoniae] as the cause of diseases classified elsewhere
CPT/HCPCS: 36415; 71010; 80053; 82550; 82553; 83880; 84484; 85025; 87070; 87077; 87186; 87205; 93005; 93010; 94640; 96365; 96367; 96374; 96375; 99284; 99285; A4222; Q0169; J0696; J1170; J1815; J2405; J2920; J7506